=== PATIENT | male | born 1950 | race Hispanic/Latino ===

== ENCOUNTER 2018-10-09 09:38 | Inpatient (IN) | payer MEDICARE | END 2018-10-13 16:50 | disposition home health service (06) | LOC: EDH 09:38 → EDHIP 10:03 → 3AH 11:54 | DX: L02.612 Cutaneous abscess of left foot (principal); L03.116 Cellulitis of left lower limb; M86.9 Osteomyelitis, unspecified; E11.621 Type 2 diabetes mellitus with foot ulcer; E11.51 Type 2 diabetes mellitus with diabetic peripheral angiopathy without gangrene; E11.42 Type 2 diabetes mellitus with diabetic polyneuropathy; I10 Essential (primary) hypertension ==

== ENCOUNTER 2018-10-23 16:20 | Inpatient (IN) | payer MEDICARE | END 2018-10-26 18:35 | disposition home health service (06) | LOC: EDH 16:20 → 3DH 10-24 05:00 → EDHIP 16:21 | DX: E11.52 Type 2 diabetes mellitus with diabetic peripheral angiopathy with gangrene (principal); M86.9 Osteomyelitis, unspecified; L03.90 Cellulitis, unspecified; E11.69 Type 2 diabetes mellitus with other specified complication; I99.8 Other disorder of circulatory system; D64.9 Anemia, unspecified; I11.0 Hypertensive heart disease with heart failure; E78.5 Hyperlipidemia, unspecified ==